=== PATIENT | female | born 1975 | race Caucasian/White ===

== ENCOUNTER 2017-08-21 15:40 | Emergency (ER) | payer OTHER, BC | END 2017-08-21 17:12 | disposition home or self-care (01) | LOC: M ED 15:40 | DX: N39.0 Urinary tract infection, site not specified (principal); F41.9 Anxiety disorder, unspecified; F32.9 Major depressive disorder, single episode, unspecified; F17.200 Nicotine dependence, unspecified, uncomplicated | CPT/HCPCS: 87086 ==

== ENCOUNTER → 2018-05-14 | Outpatient (CLI) | payer OTHER | LOC: M RAD 15:38 | DX: M25.561 Pain in right knee (principal); M25.461 Effusion, right knee | CPT/HCPCS: 76882 ==

== ENCOUNTER → 2020-05-02 | Outpatient (REF) | payer OTHER, BC ==
[~2020-05-02] MED LIST: BACT800T5 PO; DOCU5LIQ PO; IBUP80TA PO; LANOOIN21 EX; MILK10SU PO; PRENTAB9 PO; PYRI1TAB5 PO; TUMS1000 PO; VICO5TA PO
== END ==
LOC: M WUC 12:47
PROVIDERS: ATTEND Physician Assistant
DX: N39.0 Urinary tract infection, site not specified (principal)